=== PATIENT | male | born 1950 | race Caucasian/White ===

== ENCOUNTER 2017-08-05 13:59 | Inpatient (IN) | payer OTHER ==
[~2017-08-05] VITALS: Ht 167.6 cm; Wt 68.0 kg
[~2017-08-05 13:59] MED LIST: CIPROFLOXACIN500 M1 PO; MIRALAX255 GM PO; NOHOMEMEDICATIONS; VITAMIN C120 GM PO; VITAMIN E600 UNIT PO
[2017-08-05 14:00] VITALS: BP 124/80
[2017-08-05 14:38] LABS: URINE BLOOD 3+ (Negative); URINE CLARITY CLOUDY; URINE GLUCOSE-RANDOM* NEGATIVE (Negative); URINE KETONES 2+ (Negative); URINE LEUKOCYTES 2+ (Negative); URINE NITRITE POSITIVE (Negative); URINE PROTEIN (DIPSTICK) 3+ (Negative); URINE SPECIFIC GRAVITY 1.025 (1.005-1.035)
[2017-08-05 14:42] LABS: ICTOTEST (BILI CONFIRMATORY) Negative (Negative); URINE BILIRUBIN NEGATIVE (Negative); URINE COLOR DARK YELLOW
[2017-08-05 14:50] LABS: MUCUS 4-6 Moderate strn/LPF (None Seen); SQUAMOUS >10 Many /LPF (0-3)
[2017-08-05 14:54] LABS: URINE WBC >25 Many /HPF (0-5)
[2017-08-05 14:55] LABS: CASTS None Seen /LPF (None Seen); CRYSTALS None Seen /LPF (None Seen)
[2017-08-05 14:55] LABS: HEMATOCRIT 39.6 % (42.0-52.0); HEMOGLOBIN 13.2 gm/dL (14.0-18.0); MCH 29.9 pg (26.0-34.0); MCHC 33.4 g/dL (28.0-37.0); MCV 89.6 fL (80.0-100.0); PLATELET COUNT 292 thou/uL (150-400); RBC 4.42 mil/uL (4.50-6.00); RDW 14.6 % (10.5-14.5)
[2017-08-05 15:04] LABS: CALCIUM 9.6 mg/dL (8.5-10.1); CREATININE 1.5 mg/dL (0.7-1.3); POTASSIUM 3.2 mmol/L (3.5-5.1)
[2017-08-05 15:10] LABS: ALBUMIN 3.1 g/dL (3.4-5.0); DIRECT BILIRUBIN 0.2 mg/dL (<0.1-0.3); TOTAL PROTEIN 7.7 g/dL (6.4-8.2)
[2017-08-05 15:15] LABS: ABSOLUTE NEUTROPHILS 22.1 thou/uL (1.4-8.2); ANISOCYTOSIS SLIGHT; LARGE PLATELETS RARE; POLYCHROMASIA OCCASIONAL
[2017-08-05] MEDS ORDERED: DIOVAN320 MG PO (15:27)
[2017-08-05 15:50] VITALS: BP 147/80
[2017-08-05 16:10] VITALS: BP 147/80
[2017-08-05 16:52] VITALS: BP 143/93
[2017-08-05 20:15] VITALS: BP 116/78
[2017-08-05 22:06] LABS: PSA TOTAL 71.3 ng/mL (0.0-4.0)
[2017-08-06 04:10] VITALS: BP 122/76
[2017-08-06 07:35] VITALS: BP 124/78
[2017-08-06 19:14] VITALS: BP 137/78
[2017-08-07 05:25] VITALS: BP 146/95
[2017-08-07 05:51] LABS: HEMATOCRIT 33.1 % (42.0-52.0); MCHC 33.6 g/dL (28.0-37.0); MCV 89.4 fL (80.0-100.0); RBC 3.7 mil/uL (4.50-6.00); RDW 14.8 % (10.5-14.5); WBC 12.1 thou/uL (4.0-11.0)
[2017-08-07 05:52] LABS: HEMOGLOBIN 11.1 gm/dL (14.0-18.0)
[2017-08-07 06:02] LABS: CALCIUM 8.3 mg/dL (8.5-10.1); CREATININE 1.1 mg/dL (0.7-1.3); POTASSIUM 3.3 mmol/L (3.5-5.1)
[2017-08-07 07:30] VITALS: BP 146/87
[2017-08-07] MEDS ORDERED: CEFUROXIME250 MG PO (09:12)
[2017-08-07] MEDS ORDERED: PAIN & FEVER325 MG PO (09:13)
[2017-08-07 10:39] VITALS: BP 146/87
[2017-08-07 12:07] LABS: FREE PSA 10.18 ng/mL; FREE PSA RATIO 14.3 % (())
== END 2017-08-07 11:41 | disposition home or self-care (01) | DRG 871 ==
LOC: ER 13:59 → EROBS 15:16 → 4E 15:16 → ENTRNSPT 08-07 11:33 → EDTRNSPTSTS 08-07 11:40 → 4E 08-07 11:41
PROVIDERS: Emergency Medicine; Hospitalist
DX: A41.9 Sepsis, unspecified organism (principal); N17.0 Acute kidney failure with tubular necrosis; N39.0 Urinary tract infection, site not specified; N41.0 Acute prostatitis; N41.9 Inflammatory disease of prostate, unspecified; E87.6 Hypokalemia; I10 Essential (primary) hypertension; Z79.899 Other long term (current) drug therapy
CPT/HCPCS: 10084